=== PATIENT | female | born 1980 | race Two or more races ===

== ENCOUNTER 2023-10-19 14:06 | Inpatient (IN) | payer OTHER ==
[2023-10-19 14:17] VITALS: BMI 33.2
[2023-10-19 16:09] LABS: BASO % 0.3 % (0-2.0); EOS % 0.3 % (0-4.5); LYMPH % 19.2 % (8-40); MCH 31.2 pg (25.7-33.7); MCHC 33.4 g/dl (32.0-36.0); MEAN CELL VOLUME 93.5 fl (80-96); MEAN PLT VOLUME 7.2 fl (7.5-11.1); MONO % 8.1 % (3.8-10.2); NEUT % 72.1 % (42.8-82.8); PLATELET COUNT 356 10^3/uL (134-434); RBC 4.17 M/mm3 (3.60-5.2); RDW 12.9 % (11.6-15.6); WHITE BLOOD COUNT 11.4 K/mm3 (4.0-10.0)
[2023-10-19 16:13] LABS: COCAINE, UR NEGATIVE (NEGATIVE); METHADONE, UR NEGATIVE (NEGATIVE); OPIATES, URI NEGATIVE (NEGATIVE); PHENCYCLIDINE,URINE NEGATIVE (NEGATIVE); URINE BARBITURATES NEGATIVE (NEGATIVE); URINE BENZODIAZEPINES NEGATIVE (NEGATIVE)
[2023-10-19 16:14] LABS: URINE AMPHETAMINES NEGATIVE (NEGATIVE)
[2023-10-19 16:20] LABS: POTASSIUM 4.1 mmol/L (3.5-5.1)
[2023-10-19 16:23] LABS: ALBUMIN 3.7 g/dl (3.4-5.0); BLOOD UREA NITROGEN 14.7 mg/dL (7-18); CALCIUM 9.6 mg/dL (8.5-10.1)
[2023-10-19 16:26] LABS: CREATININE 0.9 mg/dL (0.55-1.3)
[2023-10-19 16:27] LABS: BILIRUBIN,TOTAL 0.3 mg/dL (0.2-1); TOT PROT 7.4 g/dl (6.4-8.2)
[2023-10-19 16:48] LABS: PH,URINE 7.5 (5.0-8.0); URINE APPEARANCE Error; URINE BILIRUBIN NEGATIVE (NEGATIVE); URINE COLOR YELLOW; URINE GLUCOSE (UA) NEGATIVE (NEGATIVE); URINE KETONE TRACE (NEGATIVE); URINE LEUK ESTERASE NEGATIVE (NEGATIVE); URINE NITRITE NEGATIVE (NEGATIVE); URINE PROTEIN TRACE (NEGATIVE); URINE UROBILINOGEN 0.2 mg/dL (0.2-1.0)
[2023-10-19] MEDS: SODIUM CHLORIDE 0.9% 1000 ML INFUS.BAG IV ONE (18:01)
[2023-10-20 08:36] LABS: HEMATOCRIT 37.7 % (32.4-45.2); HEMOGLOBIN 13.1 GM/dL (10.7-15.3); MCH 32.3 pg (25.7-33.7); MCHC 34.8 g/dl (32.0-36.0); MEAN CELL VOLUME 92.6 fl (80-96); MEAN PLT VOLUME 7.7 fl (7.5-11.1); PLATELET COUNT 357 10^3/uL (134-434); RBC 4.06 M/mm3 (3.60-5.2); WHITE BLOOD COUNT 9.8 K/mm3 (4.0-10.0)
[2023-10-20 08:55] LABS: POTASSIUM 3.9 mmol/L (3.5-5.1)
[2023-10-20 09:01] LABS: ALBUMIN 3.6 g/dl (3.4-5.0); BLOOD UREA NITROGEN 9.7 mg/dL (7-18); CALCIUM 8.7 mg/dL (8.5-10.1)
[2023-10-20 09:04] LABS: CREATININE 0.8 mg/dL (0.55-1.3)
[2023-10-20 09:05] LABS: TOT PROT 7.7 g/dl (6.4-8.2)
[2023-10-20 09:20] LABS: BILIRUBIN,TOTAL 0.5 mg/dL (0.2-1)
[2023-10-20] MEDS: diphenhydrAMINE HCL 25 MG CAPSULE (FP) PO ONE (23:41)
[2023-10-21 01:41] VITALS: RESP 18
[2023-10-21 07:14] LABS: BASO % 0.5 % (0-2.0); EOS % 0.8 % (0-4.5); HEMATOCRIT 39.7 % (32.4-45.2); HEMOGLOBIN 13.2 GM/dL (10.7-15.3); LYMPH % 30.4 % (8-40); MCHC 33.3 g/dl (32.0-36.0); MEAN CELL VOLUME 93.2 fl (80-96); MEAN PLT VOLUME 7.7 fl (7.5-11.1); MONO % 6.8 % (3.8-10.2); NEUT % 61.5 % (42.8-82.8); PLATELET COUNT 365 10^3/uL (134-434); RBC 4.26 M/mm3 (3.60-5.2); RDW 12.8 % (11.6-15.6); WHITE BLOOD COUNT 12.7 K/mm3 (4.0-10.0)
[2023-10-21 07:23] LABS: POTASSIUM 4.1 mmol/L (3.5-5.1)
[2023-10-21 07:26] LABS: ALBUMIN 3.6 g/dl (3.4-5.0); BLOOD UREA NITROGEN 16.7 mg/dL (7-18)
[2023-10-21 07:32] LABS: BILIRUBIN,TOTAL 0.8 mg/dL (0.2-1); TOT PROT 7.4 g/dl (6.4-8.2)
[2023-10-21 14:54] VITALS: BP 149/95; PULSE 117; TEMP 98.4
== END 2023-10-21 15:31 | disposition home or self-care (01) | DRG 47 ==
LOC: JER 14:06 → JERBED 17:53 → J4S 21:47
PROVIDERS: ADMIT Internal Medicine; ATTEND Internal Medicine
DX: G45.9 Transient cerebral ischemic attack, unspecified (principal); F32.A Depression, unspecified; G43.909 Migraine, unspecified, not intractable, without status migrainosus; R25.1 Tremor, unspecified; R44.3 Hallucinations, unspecified; T43.595A Adverse effect of other antipsychotics and neuroleptics, initial encounter; Y92.89 Other specified places as the place of occurrence of the external cause
CPT/HCPCS: 36415; 70450-TC; 70551-TC; 71045-TC-FY; 80053; 80061; 80307; 81003; 82550; 82962; 83036; 83605; 83735; 84443; 85025; 85027; 87086; 93005; 93010; 97116-GP; 97161-GP; 99285-25